=== PATIENT | female | born 1945 | race African-American/Black ===

== ENCOUNTER → 2019-07-08 12:15 | Outpatient (CLI) | payer OTHER, SELFPAY ==
--- NOTE | ~2019-07-08 | DEXA_ITS ---
Bone Density Report Name: Elizabeth Valles Age: 73 Sex: Female Ethnicity: Black Date of : 1945 Indication: postmenopausal; screening for osteoporosis; height loss; hysterectomy; Referring Provider: Matias, Tomasa Swanson Study: Bone densitometry was performed. Exam Date: July 08, 2019 Accession number: [id number] Bone Density: Region BMD T-score Z-score Classification AP Spine (L1-L4) 1.194 1.3 3.0 Normal Femoral Neck (Left) 0.660 -1.7 -0.5 Osteopenia Total Hip (Left) 1.105 1.3 1.7 Normal Femoral Neck (Right) 0.759 -0.8 0.2 Normal Total Hip (Right) 1.022 0.7 1.2 Normal Total Hip Mean 1.064 1.0 1.5 Normal World Health Organization criteria for BMD impression classify patients as: Normal (T-score at or above -1.0), Osteopenia (T-score between -1.0 and -2.5), or Osteoporosis (T-score at or below -2.5). 10-year Fracture Risk(1): Major Osteoporotic Fracture 4.3% Hip Fracture 0.8% Reported Risk Factors: [place] ([place]), Neck BMD=0.660, BMI=43.1 (1) FRAX(R) Version 3.08. Fracture probability calculated for an untreated patient. Fracture probability may be lower if the patient has received treatment. Previous Exams: Region Exam Age BMD T-score BMD Change BMD Change Date g/cm2 vs Baseline vs Previous AP Spine(L1-L4) 07/08/2019 73 1.194 1.3 0.005 0.057* 06/27/2017 71 1.137 0.8 -0.052* 0.091 05/01/2015 69 1.046 0.0 -0.143 -0.052 04/27/2013 67 1.098 0.5 -0.091* -0.113* 04/23/2010 64 1.212 1.5 0.022 0.022 04/16/2007 61 1.189 1.3 Total Hip(Left) 07/08/2019 73 1.105 1.3 -0.143* 0.010 06/27/2017 71 1.095 1.3 -0.153* -0.095 05/01/2015 69 1.191 2.0 -0.058 0.048 04/27/2013 67 1.142 1.6 -0.106* -0.029* 04/23/2010 64 1.171 1.9 -0.078* -0.078* 04/16/2007 61 1.249 2.5 Total Hip(Right) 07/08/2019 73 1.022 0.7 -0.095* -0.005 06/27/2017 71 1.027 0.7 -0.090* -0.082 05/01/2015 69 1.109 1.4 -0.008 0.063 04/27/2013 67 1.046 0.9 -0.071* -0.142 04/23/2010 64 1.189 2.0 0.072 0.072 04/16/2007 61 1.117 1.4 *Denotes significance at 95% confidence level, LSC for AP Spine = 0.022 g/cm2, LSC for Total Hip = 0.027 g/cm2 Clinical Information Provided by Patient:
== END ==
PROVIDERS: PCP Family Medicine; Visit Provider Nurse Practitioner Obstetrics & Gynecology
DX: Z78.0 Asymptomatic menopausal state (principal); M85.852 Other specified disorders of bone density and structure, left thigh
CPT/HCPCS: 77080

== ENCOUNTER 2020-08-25 10:47 | Emergency (ER) | payer OTHER, SELFPAY ==
--- NOTE | ~2020-08-25 | XR_ITS ---
EXAMINATION: XR elbow RT min 3V EXAM DATE: 08/25/2020 11:28 INDICATION: No injury, rt swelling elbow . TECHNIQUE: Right elbow frontal, lateral with flexion, and oblique projections obtained and reviewed. There is no prior study for comparison. FINDINGS: Right elbow anterior humeral line intact. There are no acute fractures or dislocations i dentified. There is no subcutaneous gas. Extensive swelling over the posterior aspect of the elbow, could indicate olecranon bursitis. There are no radiopaque foreign bodies. There is mild to modera te primary osteoarthritis. IMPRESSION: 1. Posterior swelling, possible olecranon bursitis. 2. 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 Reviewed, dictated and finalized at location A.
--- NOTE | 2020-08-25 11:08 | ED.UPPEXIN ---
HPI - Extremity Injury (Upper) General Chief Complaint: Extremity Injury, Upper Stated Complaint: Right Arm Pain Time Seen by Provider: 08/25/20 11:08 Source: patient and RN notes reviewed Mode of arrival: ambulatory Limitations: no limitations History of Present Illness HPI narrative: 74-year-old female presents to the [facility] with right elbow pain x3 days. Swelling noted to the posterior elbow. Decreased range of motion secondary to pain. Good radial pulse. Sensation intact distal to pain. Capillary refill under 2 seconds Related Data Home Medications Medication Instructions Recorded Confirmed acetaminophen [Tylenol Extra 08/25/20 Strength] apixaban [Eliquis] mg 08/25/20 atorvastatin 08/25/20 atorvastatin [Lipitor] 08/25/20 blood sugar diagnostic [Fora V30A] 08/25/20 08/25/20 diltiazem HCl [Tiadylt ER] PO 08/25/20 glimepiride mg 08/25/20 losartan 08/25/20 losartan 08/25/20 losartan [Cozaar] 08/25/20 metoprolol tartrate 08/25/20 torsemide mg 08/25/20 Allergies Allergy/AdvReac Type Severity Reaction Status Date / Time Penicillins Allergy Unknown Verified 07/06/13 08:22 Review of Systems Review of Systems: Narrative: CONSTITUTIONAL: Denies fever, chills, or sweats. CARDIOVASCULAR: Denies chest pain, palpitations, or edema. RESPIRATORY: Denies cough or dyspnea. MUSCULOSKELETAL: Denies back pain.right elbow joint pain. NEUROLOGIC: Denies headache, numbness, or weakness. PSYCHIATRIC: Denies anxiety or depression. All other systems reviewed are negative, except as documented in HPI. [facility] Family History Family History (Updated 08/23/16 @ 23:56 by DOCTOR UNKNOWN) Mother Family history of heart disease in male family member before age 55, Onset Age: 67 Patient's mother is Social History Social History Smoking status: Former smoker Smoking end date: 05/19/73 Alcohol intake: never Comments At the time of my signature, I reviewed and agree with the nursing past medical, surgical, social, and family history. There is no relevant family history pertinent to the patient complaint. Exam Narrative: Exam Narrative: GENERAL: This is a well-nourished, well-developed patient, in no apparent distress. HEAD: normocephalic, atraumatic. EYES: PERRL. Sclera clear/white. Vision is grossly intact. EARS: External ears normal CARDIOVASCULAR: Regular rate and rhythm without murmurs, gallops, or rubs. RESPIRATORY: Clear to auscultation. Breath sounds equal bilaterally. No wheezes, rales, or rhonchi. SKIN: warm, intact with no suspicious lesions or rash, good texture and turgor. NEURO: awake, alert, and oriented to person, place and time. There were no obvious focal neurologic abnormalities. EXTREMITIES: Right elbow joint tenderness with effusion. Swelling noted right posterior elbow. Decreased ROM BACK: Nontender without deformity. Course Vital Signs Vital signs: Vital Signs Temperature 97.8 F 08/25/20 11:09 Pulse Rate 73 08/25/20 11:09 Respiratory Rate 18 08/25/20 11:09 Blood Pressure 137/76 08/25/20 11:09 Pulse Oximetry 100 08/25/20 11:09 Temperature 97.8 F 08/25/20 11:09 Pulse Rate 73 08/25/20 11:09 Respiratory Rate 18 08/25/20 11:09 Blood Pressure 137/76 08/25/20 11:09 Pulse Oximetry 100 08/25/20 11:09 Reviewed MDM - Extremity Injury (Upper) Differential Diagnosis Differential diagnosis: Likely other (Bursitis, arthritis, fracture of elbow, cellulitis) Imaging Data Radiologist's impression: Impressions Elbow X-Ray 08/25/20 11:29 IMPRESSION: 1. Posterior swelling, possible olecranon bursitis. 2. 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 Critical Care Time Critical Care Time Critical Care Time: No Discharge Plan Discharge Clinical Impression: Bursitis, olecranon Qualifiers: Laterality: right Qualified Code(s): M70.21 - Olecranon burs
[2020-08-25 11:09] VITALS: BP 137/76; PULSE 73; RESP 18; TEMP 36.6; O2SAT 100
== END 2020-08-25 11:55 | disposition home or self-care (01) ==
PROVIDERS: Emergency Provider Nurse Practitioner; PCP Family Medicine
DX: M25.521 Pain in right elbow (principal); M70.21 Olecranon bursitis, right elbow; Z87.891 Personal history of nicotine dependence; E78.00 Pure hypercholesterolemia, unspecified; I10 Essential (primary) hypertension; E11.9 Type 2 diabetes mellitus without complications
CPT/HCPCS: 73080; 99213; G0463

== ENCOUNTER 2021-03-24 13:45 | Emergency (ER) | payer OTHER, SELFPAY ==
[2021-03-24 13:56] VITALS: BP 167/82; PULSE 77; RESP 16; TEMP 36.7; O2SAT 98
--- NOTE | 2021-03-24 14:31 | ED.SKABFB ---
HPI - Skin/Abscess/Foreign Bdy General Chief complaint: Skin/Abscess/Foreign Body Stated complaint: Cyst on left Shoulder Time Seen by Provider: 03/24/21 14:31 Source: patient Mode of arrival: ambulatory Limitations: no limitations History of Present Illness HPI narrative: Elizabeth Valles is a 75 yo female with a PMH of HTN a large pop along her mid back that is tender to touch that she wants to drain Related Data Home Medications Medication Instructions Recorded Confirmed acetaminophen [Tylenol Extra 08/25/20 Strength] apixaban [Eliquis] mg 08/25/20 atorvastatin 08/25/20 atorvastatin [Lipitor] 08/25/20 blood sugar diagnostic [Fora V30A] 08/25/20 08/25/20 diltiazem HCl [Tiadylt ER] PO 08/25/20 glimepiride mg 08/25/20 losartan 08/25/20 losartan 08/25/20 losartan [Cozaar] 08/25/20 metoprolol tartrate 08/25/20 torsemide mg 08/25/20 Allergies Allergy/AdvReac Type Severity Reaction Status Date / Time Penicillins Allergy Unknown Verified 07/06/13 08:22 Review of Systems Review of Systems: CONSTITUTIONAL: Denies fever, chills, sweats. EYES: Denies visual changes, redness, discharge. ENT: Denies rhinorrhea, congestion, sore throat, otalgia. CARDIOVASCULAR: Denies chest pain, palpitations, edema. RESPIRATORY: Denies dyspnea, wheezing, cough GASTROINTESTINAL: Denies abdominal pain, nausea, vomiting, diarrhea. GENITOURINARY: Denies dysuria, hematuria, abnormal discharge SKIN: Denies rash or itching. Has one by one enlarged lesion that is nonfluctuant NEUROLOGIC: Denies numbness, or focal weakness. PSYCHIATRIC: Denies anxiety or depression. PMFSH Past Medical History Medical History A-fib Chronic anticoagulation Diabetes Hypertension Family History Family History Mother Family history of heart disease in male family member before age 55, Onset Age: 67 Patient's mother is Social History Social History Smoking status: Former smoker Smoking end date: 05/19/73 Alcohol intake: never Comments At time of signature, I agree with nursing past medical, surgical, social and family history. There is no relevant family history pertinent to the presenting complaint. Exam Narrative: GENERAL: This is a well-nourished, well-developed patient, in mild distress. HEAD: normocephalic, atraumatic. EYES: Sclera clear/white. Vision is grossly intact. EARS: External ears normal,. Hearing grossly intact. NOSE: External nose normal without nasal discharge, nares without redness, no rhinorrhea. THROAT: Mucous membranes moist, NECK: Neck supple, non-tender CARDIOVASCULAR: Regular rate and rhythm without murmurs, gallops, or rubs. RESPIRATORY: Clear to auscultation. Breath sounds equal bilaterally. No wheezes, rales, or rhonchi. GASTROINTESTINAL: Abdomen soft, non-tender, SKIN: warm, intact with one by one lesion on back that is tender and nonfluctuant. NEURO: awake, alert, and oriented to person, place and time. There were no obvious focal neurologic abnormalities. Steady gait EXTREMITIES: Normal range of motion. BACK: Nontender without deformity Course Course Emergency Course: Skin lesion that is one by one that is tender and nonfluctuant will attempt to open with a needle. No pus from lesion; started on warm packs and started on Bactrim Vital Signs Vital signs: Vital Signs Temperature 98.0 F 03/24/21 13:56 Pulse Rate 77 03/24/21 13:56 Respiratory Rate 16 03/24/21 13:56 Blood Pressure 167/82 H 03/24/21 13:56 Pulse Oximetry 98 03/24/21 13:56 Temperature 98.0 F 03/24/21 13:56 Pulse Rate 77 03/24/21 13:56 Respiratory Rate 16 03/24/21 13:56 Blood Pressure 167/82 H 03/24/21 13:56 Pulse Oximetry 98 03/24/21 13:56 Procedures Abscess I/D back: Date of Incision:
== END 2021-03-24 15:10 | disposition home or self-care (01) ==
PROVIDERS: Emergency Provider Nurse Practitioner; PCP Family Medicine
DX: L03.312 Cellulitis of back [any part except buttock and flank] (principal); I48.91 Unspecified atrial fibrillation; Z79.01 Long term (current) use of anticoagulants; E11.9 Type 2 diabetes mellitus without complications; I10 Essential (primary) hypertension; Z87.891 Personal history of nicotine dependence
CPT/HCPCS: 10160; 99213; G0463